=== PATIENT | male | born 1955 | race Caucasian/White ===

== ENCOUNTER → 2016-11-27 | Outpatient (CLI) | payer OTHER ==
[~2016-11-27] MED LIST: AMLO5TAB2 PO; ASPI-496 PO; ASPI-650 PO; CETI10TA24 PO; GABA300C10 PO; LOSA100T6 PO; OXYC-302 PO; SIMV10TA3 PO
[2016-11-27 16:45] LABS: BLOOD UREA NITROGEN 16 mg/dL (7-18)
[2016-11-27 16:52] LABS: ASPARTATE AMINO TRANSFERASE 28 U/L (15-37)
== END | disposition home or self-care (01) ==
LOC: STAR 15:46
PROVIDERS: ATTEND Otolaryngology
DX: J31.1 Chronic nasopharyngitis (principal); J34.9 Unspecified disorder of nose and nasal sinuses; H90.6 Mixed conductive and sensorineural hearing loss, bilateral
CPT/HCPCS: 36415; 80053; 93005

== ENCOUNTER 2016-12-02 06:33 | Day surgery (SDC) | payer OTHER ==
[~2016-12-02] VITALS: Ht 188 cm; Wt 102.7 kg
[2016-12-02] MEDS ORDERED: LIDOCAINE/PF 1%, 30ML ONE (06:45)
[2016-12-02] MEDS ORDERED: OXYMETAZOLINE NASAL SPRAY 0.05%, 15ML ONE (06:45)
[2016-12-02] MEDS ORDERED: EPINEPHRINE 1 MG/ML, 1ML ONE (06:45)
[2016-12-02 07:14] VITALS: BP 143/92
[2016-12-02] MEDS ORDERED: LACTATED RINGERS 1,000 ML IV SCH (07:14)
[2016-12-02] MEDS ORDERED: LIDOCAINE 1%, 2ML SQ PRN (07:30)
[2016-12-02] MEDS ORDERED: FENTANYL PF 100 MCG/2ML ONE ×2 (08:29→09:38)
[2016-12-02] MEDS ORDERED: METOCLOPRAMIDE 5 MG/ML, 2ML ONE (08:36)
[2016-12-02] MEDS ORDERED: ROCURONIUM 10 MG/ML ONE (08:36)
[2016-12-02] MEDS ORDERED: PROPOFOL 10 MG/ML, 20ML ONE (08:36)
[2016-12-02] MEDS ORDERED: CEFAZOLIN 1,000 MG ONE (08:36)
[2016-12-02] MEDS ORDERED: DEXAMETHASONE 4 MG/ML, 1ML ONE (08:36)
[2016-12-02] MEDS ORDERED: SUCCINYLCHOLINE 20 MG/ML, 10ML ONE (08:36)
[2016-12-02] MEDS ORDERED: ONDANSETRON 2MG/ML, 2ML ONE (08:36)
[2016-12-02] MEDS ORDERED: LIDOCAINE 2% 100MG/5ML SYRINGE ONE (08:36)
[2016-12-02] MEDS ORDERED: LABETALOL 5MG/ML, 20ML IV PRN (09:00)
[2016-12-02] MEDS ORDERED: ACETAMINOPHEN 325 MG TABLET PO PRN (09:00)
[2016-12-02] MEDS ORDERED: OXYcodone 5 MG/5 ML ORAL.SOL UDC PO PRN (09:00)
[2016-12-02] MEDS ORDERED: HYDROmorphone 1 MG/ML, 1ML IV PRN (09:00)
[2016-12-02] MEDS ORDERED: hydrALAzine 20 MG/ML, 1ML IV PRN (09:00)
[2016-12-02] MEDS ORDERED: PROMETHAZINE 25 MG/ML, 1ML IV PRN (09:00)
[2016-12-02] MEDS ORDERED: MEPERIDINE/PF 25MG/0.5ML IVPush PRN (09:00)
[2016-12-02] MEDS ORDERED: ONDANSETRON 2MG/ML, 2ML IVPush PRN (09:00)
[2016-12-02] MEDS ORDERED: MIDAZOLAM 1 MG/ML, 2ML IV PRN (09:00)
[2016-12-02] MEDS ORDERED: ACETAMINOPHEN 650 MG/20.3 ML UDC ONE (09:37)
[2016-12-02] MEDS ORDERED: ACETAMINOPHEN 325 MG/10.15 ML UDC ONE (09:38)
[2016-12-02] MEDS ORDERED: OXYcodone 5 MG/5 ML ORAL.SOL UDC ONE (09:38)
[2016-12-02] MEDS: FENTANYL PF 100 MCG/2ML IV PRN ×2 (09:43→09:59)
== END 2016-12-02 12:00 | disposition home or self-care (01) ==
LOC: OUT 06:33
PROVIDERS: ATTEND Otolaryngology
DX: D10.39 Benign neoplasm of other parts of mouth (principal); J31.1 Chronic nasopharyngitis; J34.2 Deviated nasal septum; R59.1 Generalized enlarged lymph nodes; K12.1 Other forms of stomatitis; I10 Essential (primary) hypertension; I25.10 Atherosclerotic heart disease of native coronary artery without angina pectoris; J44.9 Chronic obstructive pulmonary disease, unspecified; Z86.73 Personal history of transient ischemic attack (TIA), and cerebral infarction without residual deficits; F17.200 Nicotine dependence, unspecified, uncomplicated; Z88.1 Allergy status to other antibiotic agents
CPT/HCPCS: 31535; 41100; 42831; 88305; J0330; J0690; J1100; J2405; J2704; J2765; J3010; J7120; J0171; J3490